=== PATIENT | male | born 1980 | race Caucasian/White ===

== ENCOUNTER 2016-10-24 01:20 | Emergency (ER) | payer OTHER ==
[~2016-10-24] VITALS: Ht 180.3 cm; Wt 90.9 kg
[~2016-10-24 01:20] MED LIST: AMIT10TA6 PO; HYDR2TAB27 PO; LISI-610 PO; LORA-303 PO; POLY17PO6 PO; SENN-133 PO
[2016-10-24 01:23] VITALS: BP 142/101; PULSE 121; RESP 16; O2SAT 100
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
[2016-10-24] MEDS ORDERED: 0.9% Sodium Chloride 1,000 ML IV ONE (01:59)
[2016-10-24] MEDS ORDERED: CeFAZolin 2 Gm/50 mL D5W Duplex Bag IV ONE (02:00)
[2016-10-24 02:47] LABS: BASOPHILS % (AUTO) 0.2 % (0-3); EOSINOPHILS % (AUTO) 0.9 % (0-5); MONOCYTES % (AUTO) 7.2 % (4-12); Mean Corpuscular Hemoglobin 27.1 pg (27.0-35.0); Mean Corpuscular Volume 79.3 fL (81-100); NEUTROPHILS % (AUTO) 68.8 % (40-74); Platelet Count 223 bil/L (150-400)
[2016-10-24] MEDS ORDERED: _oxyCODONE/APAP 5-325 mg Tablet PO PRN (03:20)
[2016-10-24] MEDS ORDERED: Trimethoprim-Sulfa 160 mg-800 mg Tablet PO ONE (03:20)
[2016-10-24] MEDS ORDERED: CEPH-512 PO (03:22)
[2016-10-24] MEDS ORDERED: SULF1TAB7 PO (03:22)
[2016-10-24 03:36] VITALS: BP 130/97; PULSE 110; RESP 16; O2SAT 100
== END 2016-10-24 04:13 | disposition home or self-care (01) ==
LOC: SED 01:20
DX: L02.512 Cutaneous abscess of left hand (principal); F17.200 Nicotine dependence, unspecified, uncomplicated; Z59.0 Homelessness; Z88.5 Allergy status to narcotic agent
CPT/HCPCS: 10060; 36415; 80053; 85025; 87040; 87070; 87075; 87077; 87186; 87205; 96365; 96375; 99284; J0690; J7030